=== PATIENT | male | born 1955 ===

== ENCOUNTER 2021-03-29 03:13 | Observation (INO) | payer MEDICARE, MEDICAID, SELFPAY ==
[2021-03-29] VITALS (9 sets, daily range): BP systolic 131–155; BP diastolic 61–85; PULSE 70–81; RESP 16–18; TEMP 36.1–36.8; O2SAT 85–93; BMI 25.1
--- NOTE | 2021-03-29 04:50 | DI.ECHO.S_ITS ---
[facility] +---------+ : : [address] : : : : [id number] : : : : Phone: [phone]+ Echocardiogram Report + + :Name: EFRAIN DRAPER Study Date: 03/29/2021 Height: 70 in : :[facility] ReadingLocation: Weight: 175 lb : : Gender: Male BSA: 2.0 m2 : :: 1955 Age: 66 yrs BP: 151/85 mmHg: :Reason For Study: Congestive Heart Failure : :Ordering Physician: MELANIE, : :KRISTIE Performed By: Fidel Vergara : :Referring: KRISTIE NAVARRO : + + Interpretation Summary The left ventricle is normal in size. The ejection fraction is estimated to be 55-60%. The right ventricle is at the upper limits of normal in size. The right ventricular systolic function is normal. There is mild aortic regurgitation. There is mild to moderate tricuspid regurgitation. The right ventricular systolic pressure is estimated to be at least 36 mmHg based on an estimated right atrial pressure of 3 mm Hg. Procedure: A two-dimensional transthoracic echocardiogram with color flow and Doppler was performed. The study quality was technically adequate. There is no prior echocardiogram noted for this patient. The patient was in normal sinus rhythm during the exam. Left Ventricle: The left ventricle is normal in size. Proximal septal thickening is noted. There is no echo evidence for significant left ventricular outflow tract obstruction. There is no thrombus. The ejection fraction is estimated to be 55-60%. There are no focal wall motion abnormalities. MV E/A: 0.80 Med Peak E' Augustin: 3.8 cm/sec E/E' med: 16.8. Right Ventricle: The right ventricle is at the upper limits of normal in size. The right ventricular systolic function is normal. Atria: The left atrial size is normal. The right atrium is mildly dilated. Intermittent aortic root shadow seen in the right atrium during different anticoagulation. In multiple views overall no obvious right atrial mass seen. There is no Doppler evidence for an interatrial shunt. The thickening of interatrial septum suggests lipomatous hypertrophy. Mitral Valve: There is mild mitral annular calcification. The mitral valve leaflets are mildly calcified. There is trace mitral regurgitation. Aortic Valve: The aortic valve is trileaflet. The aortic valve opens well. The aortic valve is slightly calcified. There is no aortic valve stenosis. There is mild aortic regurgitation. Tricuspid Valve: Fatty tricuspid annulus. There is mild to moderate tricuspid regurgitation. The right ventricular systolic pressure is estimated to be at least 36 mmHg based on an estimated right atrial pressure of 3 mm Hg. Pulmonic Valve: The pulmonic valve is normal in structure and function. There is a trace or physiologic amount of pulmonic regurgitation. Great Vessels: The aortic root is normal size. The IVC is of normal diameter and collapses greater than 50% with a sniff. This suggests a low right atrial pressure of 3 mm Hg. Pericardium/ Pleura There is no pericardial effusion. There is no pleural effusion. MMode/2D Measurements & Calculations LVIDd: 5.6 cm LVOT diam: 2.4 cm LVIDs: 3.6 cm Ao root diam: 3.5 cm FS: 34.4 % IVSd: 1.1 cm LVPWd: 1.0 cm LV lechuga. diameter/BSA (cm/m^2): 2.8 LV sys. diameter/BSA (cm/m^2): 1.9 LA A2 area: 21.7 cm2 RA long axis: 5.0 cm LA A4 area: 19.0 cm2 RA area: 20.7 cm2 LA length (vol): 5.6 cm RA vol: 73.3 ml LA vol: 62.7 ml RA : 37.2 ml/m2 LA vol index: 31.8 ml/m2 RVD1 (basal): 3.8 cm TAPSE: 2.9 cm Doppler Measurements & Calculations Ao V2 max: 176.8 cm/sec LVOT Max Augustin: 135.9 cm/sec Ao V2 mean: 116.8 cm/sec LV V1 max P.4 mmHg Ao max P.5 mmHg LV V1 VTI: 27.8 cm Ao mean P.3 mmHg CAROLYNN(I,D): 3.8 cm2 Ao V2 VTI: 34.0 cm CAROLYNN(V,D): 3.6 cm2 sev ratio: 0.82 CAROLYNN indexed to BSA (cm^2/m^2): 1.9 MV E max augustin: 63.3 cm/sec TR max augustin: 285.3 cm/sec MV A max augustin: 79.3 cm/sec TR max P.6 mmHg MV E/A: 0.80 PA pr(Accel): 41.3 mmHg Med Peak E' Augustin: 3.8 cm/sec E/E' med: 16.8 Lat Peak E' Augustin: 7.8 cm/sec E/E' lat: 8.1 E/e' average: 12.4 MV dec time: 0.33 sec [facility] 128.9 ml Reading Physician:11:57 AM
--- NOTE | 2021-03-29 04:52 | P.HP_ITS ---
History of Present Illness History of Present Illness Date Patient Seen: 03/29/21 Time Patient Seen: 04:53 Chief complaint: COPD Exacerbation Narrative: The patient is a 66-year-old male with a history of COPD, gout, congestive heart failure, hyperlipidemia who was in his usual state of health until 3 days ago. Patient reports he began getting increasingly short of breath using his inhaler more frequently. Yesterday he got up coughed and became abruptly short of breath. He was taken to the [facility] Emergency Department for evaluation. Patient was found to have COPD exacerbation. He also had a chest x-ray which showed a right lower lobe pneumonia. The patient underwent chest x-ray which confirmed the pneumonia in addition to CT angio which showed no evidence of PE and a right lower lobe pneumonia. The patient's laboratory studies were remarkable for sodium of 141 potassium 4.5 chloride 104 CO2 of 26 BUN 26 creatinine 1.05 calcium 9 AST 20 ALT of 23 alk phos of 132 total protein 7.6 albumin 3.8. Patient was hypoxic on room air and placed on 4 L of oxygen for saturation of 91 and 93%. He was started on ceftriaxone and azithromycin and given IV steroids. Patient had a 12 lead EKG which showed sinus rhythm and no acute ST T wave abnormalities. Patient had documented oxygen saturation of 89% on room air which improved to 94% on 4 L of oxygen patient had a procalcitonin which was 0.5, lactic acid 0.7, D-dimer elevated at 0.67, troponin I 0.017 patient's SARS-CoV-2 was negative, viral panel was negative as well. Blood cultures were obtained as well. Patient does report cough, shortness of breath and wheezing. He has no headache blurred vision or double vision. He had no runny nose or fever. He denies any hemoptysis, nausea vomiting or diarrhea. Patient has no palpitations but does describe chest pain related to coughing. He does report occasional lower extremity edema. He previously was on Lasix for edema but that was discontinued. Patient was transferred from [facility] to [facility] as they had no beds available for inpatient treatment of COPD and right lower lobe pneumonia. Patient History Medical History (Updated 03/29/21 @ 05:06 by Johanna Montiel MD) Acute exacerbation of chronic obstructive pulmonary disease (COPD) Chronic congestive heart failure Degenerative joint disease (DJD) of lumbar spine Gout Hyperlipidemia Hypertension Surgical History (Updated 03/29/21 @ 05:07 by Johanna Montiel MD) H/O meniscectomy of right knee Family & Social History Family History (Updated 03/29/21 @ 05:07 by Johanna Montiel MD) Mother Congestive heart failure Social History: household members none Prior Living Arrangements House Safety & Behavioral: Feels Safe in Current Yes Environment Been Physically Hurt or No Threatened By a Person Suicidal Ideation Description None Tobacco & Substance use: Tobacco type cigarettes Smoking Status Former smoker Smoking packs per day 1 alcohol intake former alcohol intake frequency 3 or more drinks per day Substance Use Type does not use Review of Systems Review of Systems Narrative: Patient reports frequency, and feels that he cannot empty his bladder. He has multiple episodes of urination. But no dysuria hematuria or pyuria. Further review 10 point review of systems is negative Exam Vital Signs (past 8 hours): - 03/29/21 03:45 Temperature 97.0 F L Pulse Rate 81 Respiratory Rate 18 Blood Pressure 155/85 H Pulse Oximetry 93 Oxygen Flow Rate 0 Narrative Exam Narrative: Pleasant gentleman resting in bed HENIL Other: HEENT: Normocephalic atraumatic, extraocular muscles are intact, oropharynx is clear, moist mucous membranes are noted. Neck Other: Neck is supple, no adenopathy, no thyromegaly, no JVD Resp Other: Lungs reveal decreased breath sounds with end-expiratory wheezing bilaterally Cardio Other: Cardiac exam: Regular rate and rhythm normal S1-S2 GI Other: Abdomen: Soft and nontender, there is an umbilical hernia, there is no hepatosplenomegaly Neuro Other: Neuro exam is nonfocal Extrem Other: No edema Psych Other: The patient is awake alert and appropriate, no hallucinations, noted delusions Objective ECG Impression: EKG from [facility] reviewed, sinus rhythm with no a cute ST T wave abnormalities Labs Labs: Labs described above Assessment & Plan Assessment & Plan narrative: 66-year-old male admitted to the hospital for acute hypoxic respiratory failure -multifactorial secondary to COPD and pneumonia -patient with a 35 pack-year he history of smoking, he quit in 2003, but is maintained on an albuterol inhaler -CT of the chest and chest x-ray confirmed right lower lobe infiltrate -patient is normally on room air, required oxygen on admission, he presented with a room air saturation of 88% -will continue ceftriaxone and azithromycin -will continue prednisone 40 mg daily -continue albuterol/ Atrovent inhaler -will start a steroid inhaler as well -[id number] negative at the outside facility respiratory panel negative as well -CT angio negative for PE 2. Hypertension -patient currently managed with Coreg 25 b.i.d. -may need to add additional medication as blood pressure somewhat elevated at 155/83. 3. Chronic congestive heart failure -will obtain echocardiogram -continue Coreg 4. Hyperlipidemia -continue pravastatin 5. Gout -continue allopurinol 6. Chronic back pain -continue tramadol Patient reports he is a full code will note that his record accordingly Patient reports his sister is his surrogate decision maker Patient will be admitted as an inpatient Time Spent With Patient Critical Care time: I spent a total of [] minutes of critical care time on this patient's care today; this time is exclusive of procedural time.
[2021-03-29] MEDS: LACTATED RINGERS 1,000 ML 100 ML IV (05:00)
[2021-03-29] MEDS: cefTRIAXone 1,000 MG in SODIUM CHLORIDE 0.9% 100 ML 200 ML IV (05:57)
[2021-03-29] MEDS: TRAMADOL 50 MG TABLET 100 MG PO ×3 (06:53→18:24)
[2021-03-29] MEDS: ACETAMINOPHEN 325 MG TABLET 650 MG PO (06:53)
[2021-03-29] MEDS: AZITHROMYCIN 250 MG TABLET PO (08:07)
[2021-03-29] MEDS: predniSONE 20 MG TABLET 40 MG PO (08:07)
[2021-03-29] MEDS: allopurinoL 300 MG TABLET PO (08:07)
[2021-03-29] MEDS: ENOXAPARIN 40 MG/0.4 ML SYRINGE SUBCUT (08:07)
[2021-03-29] MEDS: carvediloL 12.5 MG TABLET 25 MG PO ×2 (08:07→19:54)
[2021-03-29] MEDS: TAMSULOSIN 0.4 MG CAPSULE PO (10:42)
[2021-03-29] MEDS: ALBUTEROL/IPRATROPIUM 3 ML AMPUL INH ×3 (12:16→21:13)
[2021-03-29 12:17] LABS: Prostate Specific Antigen 1.76 ng/mL (0.10-4.00)
[2021-03-29] MEDS: PRAVASTATIN 20 MG TABLET 80 MG PO (21:03)
[2021-03-29] MEDS: BUDESONIDE 0.5 MG/2 ML NEB INH (21:13)
[2021-03-30 00:30] VITALS: BP 132/65; PULSE 66; RESP 16; TEMP 36.2; O2SAT 92
[2021-03-30] MEDS: TRAMADOL 50 MG TABLET 100 MG PO ×3 (01:10→12:57)
[2021-03-30] MEDS: ACETAMINOPHEN 325 MG TABLET 650 MG PO ×2 (01:13→14:15)
[2021-03-30 04:45] VITALS: BP 139/70; PULSE 72; RESP 16; TEMP 36.2; O2SAT 93
[2021-03-30] MEDS: cefTRIAXone 1,000 MG in SODIUM CHLORIDE 0.9% 100 ML 200 ML IV (05:34)
[2021-03-30 06:18] LABS: Add Manual Diff / Slide Review NO; Basophils Absolute Auto 100 /uL (0-100); Basophils Percent Auto 0.4 % (0-2); Eosinophils Absolute Auto 0 /uL (0-450); Eosinophils Percent Auto 0.2 % (2-4); Hemoglobin 13.7 g/dL (13.5-17.5); Lymphocytes Absolute Auto 3600 /uL (1100-4500); Lymphocytes Percent Auto 15.8 % (25-40); Mean Corpuscular HGB Conc 32.7 % (30-36); Mean Corpuscular Hemoglobin 29.3 PG (26-34); Mean Corpuscular Volume 89.9 fL (80-100); Monocytes Absolute Auto 1200 /uL (0-900); Monocytes Percent Auto 5.1 % (3-14); Neutrophils Absolute Auto 18100 /uL (1500-7000); Neutrophils Percent Auto 78.5 % (50-75); Platelet Count 180 X10^3/uL (150-400); Red Blood Cell Count 4.68 X10^6/uL (4.5-5.9); Red Cell Distribution Width 15.6 % (11.6-14.8)
[2021-03-30 06:39] LABS: Alanine Aminotransferase 21 IU/L (<50); Albumin 3.8 g/dL (3.5-5.0); Albumin Globulin Ratio 1.3 (1.0-2.8); Alkaline Phosphatase 81 U/L (38-126); Aspartate Aminotransferase 43 IU/L (17-59); BUN Creatinine Ratio 36.7 (6-22); Bilirubin Total 0.4 mg/dL (0.2-1.3); Blood Urea Nitrogen 36 mg/dL (9-20); Calcium 9.2 mg/dL (8.4-10.2); Carbon Dioxide 24 mmol/L (22-32); Chloride 111 mmol/L (98-107); Estimated Glomerular Filt Rate > 60.0 mL/min (>60); Globulin 2.9 g/dL (1.7-4.1); Glucose 108 mg/dL (80-110); HEMOLYSIS < 15 (0-50); Potassium 4.1 mmol/L (3.4-5.1); Sodium 142 mmol/L (137-145); Total Protein 6.7 g/dL (6.3-8.2)
[2021-03-30 06:47] LABS: NT-proBNP (BNP-Adult 18+) 1020 pg/mL (<125)
[2021-03-30 08:00] VITALS: BP 151/85; PULSE 64; RESP 14; TEMP 36.5; O2SAT 94
[2021-03-30] MEDS: ALBUTEROL/IPRATROPIUM 3 ML AMPUL INH (08:24)
[2021-03-30] MEDS: BUDESONIDE 0.5 MG/2 ML NEB INH (08:24)
[2021-03-30 08:27] VITALS: O2SAT 96
[2021-03-30 08:46] VITALS: BP 151/85
[2021-03-30] MEDS: carvediloL 12.5 MG TABLET 25 MG PO (08:46)
[2021-03-30] MEDS: AZITHROMYCIN 250 MG TABLET PO (08:46)
[2021-03-30] MEDS: allopurinoL 300 MG TABLET PO (08:47)
[2021-03-30] MEDS: predniSONE 20 MG TABLET 40 MG PO (08:47)
[2021-03-30] MEDS: ENOXAPARIN 40 MG/0.4 ML SYRINGE SUBCUT (08:48)
[2021-03-30] MEDS: TAMSULOSIN 0.4 MG CAPSULE PO (08:50)
--- NOTE | 2021-03-30 09:15 | PM.DS.1 ---
History of Present Illness History of Present Illness Date Patient Seen: 03/30/21 Time Patient Seen: 09:15 Chief complaint: COPD Exacerbation Narrative: Per Dr. Montiel, The patient is a 66-year-old male with a history of COPD, gout, congestive heart failure, hyperlipidemia who was in his usual state of health until 3 days ago.? Patient reports he began getting increasingly short of breath using his inhaler more frequently.? Yesterday he got up coughed and became abruptly short of breath.? He was taken to the [facility] Emergency Department for evaluation.? Patient was found to have COPD exacerbation.? He also had a chest x-ray which showed a right lower lobe pneumonia.? The patient underwent chest x-ray which confirmed the pneumonia in addition to CT angio which showed no evidence of PE and a right lower lobe pneumonia.? The patient's laboratory studies were remarkable for sodium of 141 potassium 4.5 chloride 104 CO2 of 26 BUN 26 creatinine 1.05 calcium 9 AST 20 ALT of 23 alk phos of 132 total protein 7.6 albumin 3.8.? Patient was hypoxic on room air and placed on 4 L of oxygen for saturation of 91 and 93%.? He was started on ceftriaxone and azithromycin and given IV steroids.? Patient had a 12 lead EKG which showed sinus rhythm and no acute ST T wave abnormalities.? Patient had documented oxygen saturation of 89% on room air which improved to 94% on 4 L of oxygen patient had a procalcitonin which was 0.5, lactic acid 0.7, D-dimer elevated at 0.67, troponin I 0.017 patient's SARS-CoV-2 was negative, viral panel was negative as well.? Blood cultures were obtained as well. Patient does report cough, shortness of breath and wheezing.? He has no headache blurred vision or double vision.? He had no runny nose or fever.? He denies any hemoptysis, nausea vomiting or diarrhea.? Patient has no palpitations but does describe chest pain related to coughing.? He does report occasional lower extremity edema.? He previously was on Lasix for edema but that was discontinued. Patient was transferred from [facility] to [facility] as they had no beds available for inpatient treatment of COPD and right lower lobe pneumonia. Discharge Providers Provider Date of admission: 03/29/21 03:13 Discharge Date: 03/30/21 Discharge provider: Silverio Harper DO Summary Hospital Course Discharge Diagnosis: 1. Acute respiratory failure with hypoxia secondary to RLL pneumonia and COPD exacerbation. 2. Hypertension 3. Chronic congestive heart failure, diastolic 4. Hyperlipidemia 5. Gout 6. Chronic back pain 7. BPH, new diagnosis Hospital Course: This is a 66-year-old male with a past medical history of COPD, hypertension, diastolic heart failure, hyperlipidemia, gout, and chronic back pain who was transferred from an outside facility for pneumonia, COPD exacerbation, and acute hypoxic respiratory failure. At outside facility his oxygenation was noted to be at 88% on room air, he was initially on 4 L. he quickly improved with antibiotics and steroids. His other usual home medications were continued. He further reported very frequent urination, waking up nightly every hour so. He was started on Flomax. I recommend that he follow-up with his primary care provider in the next couple of weeks. He was discharged on oral prednisone to complete taper and an antibiotic for 3 additional days. He has a reported history of diastolic heart failure, echocardiogram revealed a normal EF, and no evidence of volume overload and was not contributory towards the patient's hypoxia. Exam Vital Signs (past 8 hours): - 03/30/21 04:45 03/30/21 08:00 03/30/21 08:27 Temperature 97.1 F L 97.7 F Pulse Rate 72 64 Respiratory Rate 16 14 Blood Pressure 139/70 151/85 H Pulse Oximetry 93 94 96 03/30/21 08:46 Temperature Pulse Rate Respiratory Rate Blood Pressure 151/85 H Pulse Oximetry Oxygen Delivery Method Room Air Oxygen Flow Rate 2 Narrative Exam Narrative: Pleasant gentleman resting in bed [facility] Other:?HEENT:? Normocephalic atraumatic, extraocular muscles are intact, oropharynx is clear, moist mucous membranes are noted. Neck Other:?Neck is supple, no adenopathy, no thyromegaly, no JVD Resp Other:?Lungs reveal decreased breath sounds with end-expiratory wheezing bilaterally Cardio Other:?Cardiac exam: Regular rate and rhythm normal S1-S2 GI Other:?Abdomen:? Soft and nontender, there is an umbilical hernia, there is no hepatosplenomegaly Neuro Other:?Neuro exam is nonfocal Extrem Other:?No edema Psych Other:?The patient is awake alert and appropriate, no hallucinations , delusions Objective Labs Result Diagrams: 03/30/21 05:53 03/30/21 05:53 Labs: Laboratory Results - last 24 hr 03/29/21 03/30/21 03/30/21 11:18 05:53 05:53 WBC 23.0 H RBC 4.68 Hgb 13.7 Hct 42.0 MCV 89.9 MCH 29.3 MCHC 32.7 RDW 15.6 H Plt Count 180 Neut % (Auto) 78.5 H Lymph % (Auto) 15.8 L Hood % (Auto) 5.1 Eos % (Auto) 0.2 L Baso % (Auto) 0.4 Neut # (Auto) 03678 H Lymph # (Auto) 3600 Hood # (Auto) 1200 H Eos # (Auto) 0 Baso # (Auto) 100 Sodium 142 Potassium 4.1 Chloride 111 H Carbon Dioxide 24 BUN 36 H Creatinine 0.98 Estimated GFR > 60.0 BUN/Creatinine Ratio 36.7 H Glucose 108 Calcium 9.2 Total Bilirubin 0.4 AST 43 ALT 21 Alkaline Phosphatase 81 NT-Pro-B Natriuret Pep 1020 H Total Protein 6.7 Albumin 3.8 Globulin 2.9 Albumin/Globulin Ratio 1.3 Prostate Specific Ag 1.76 [facility] Medical History (Updated 03/29/21 @ 05:06 by Johanna Montiel MD) Acute exacerbation of chronic obstructive pulmonary disease (COPD) Chronic congestive heart failure Degenerative joint disease (DJD) of lumbar spine Gout Hyperlipidemia Hypertension Surgical History (Updated 03/29/21 @ 05:07 by Johanna Montiel MD) H/O meniscectomy of right knee Family History (Updated 03/29/21 @ 05:07 by Johanna Montiel MD) Mother Congestive heart failure Social History household members: none Smoking Status: Former smoker alcohol intake: former Discharge Plan Discharge Plan Patient Disposition: Home Provider Discharge Comment: You were admitted to the hospital with COPD exacerbation and a pneumonia. You improved with antibiotics and steroids. You were also started on a medication for prostate enlargement. Please follow up with your PCP in the next few weeks. Discharge orders & Medications Prescriptions: New prednisone 20 mg Tablet 40 mg PO DAILY 3 Days Qty: 6 RF: 0 tamsulosin [Flomax] 0.4 mg Capsule 0.4 mg PO DAILY 30 Days Qty: 30 RF: 0 amoxicillin-pot clavulanate 875-125 mg tablet 1 tab PO BID 3 Days Qty: 6 RF: 0 Continued tramadol 50 mg tablet 50 mg QID RF: 0 albuterol sulfate 90 mcg/actuation HFA aerosol inhaler 90 mcg INHALATION DAILY RF: 0 allopurinol 300 mg tablet 300 mg PO DAILY RF: 0 carvedilol 25 mg tablet 25 mg PO BID RF: 0 pravastatin 80 mg tablet 80 mg PO DAILY RF: 0 Diet/Activity/Treatments Diet: Diet as Tolerated Activity: As tolerated Visit Report/Discharge Packet Instructions: DI for Prescription Opioid Use, Prednisone, DI for Hypoxia Discharge Data Attending Provider: Johanna Montiel
--- NOTE | 2021-03-30 11:08 | CM.DANOTE ---
Addendum entered by Kelley Cool BUSINESS ANALYT[employer] INTERN 03/30/21 13:23: ADD: Per [employer], still have not heard back from [employer]. SW called and texted [employer] and no response yet. SW called [employer] and confirmed route for [place] [place] and also called [employer] and confirmed that they do not have availability to drive pt all the way to [place] but could utilize the taxi voucher to get pt to the [facility] bus/train station for pt to catch the 1400 bus to [place]. SW updated pt and he is not agreeable to taking the bus and states he has some money on my debit card, I'd rather just pay myself and have a straight ride to my destination. SW confirmed that he wants to cancel [employer] to [facility] and would rather pay privately. SW called [employer] [place], [employer] [facility], [employer], [employer] and only [employer] has availability for transport at 1400 and [address]. SW updated pt and he is agreeable to paying for this. Return call from [employer] [facility] who states they have an opening for Medicaid transport for pt around 1500 today. THEA spoke with pt and preference is to go with [employer] Medicaid transport as he is on a fixed income and he requests SW to cancel his [employer] transport. THEA called and cancelled. Plan: Patient to d/c home today via Medicaid taxi with [employer] around 1500. BF Original Note: Patient is a 66 yo male who was admitted on 03/29/21 for COPD exacerbation. Pt has [facility] MCR for insurance and AMANDA. EMR was reviewed. Per MD, pt was transferred from [facility] due to bed availability shortage and admitted with pneumonia and PE. Pt medically stable to d/c home today. THEA met bedside with pt and explained role and he confirms he lives in [facility] area alone and independent at baseline with ADL's and drives and his only family left is his sister who is staying at the [facility] in [place] which is where pt is going at d/c. Pt states he does not have a ride home but is ready to d/c as soon as possible but unsure if he has Medicaid transport benefits. THEA called [employer] w/e and confirmed pt has Medicaid benefits and they are willing to attempt setting up a Medicaid taxi to [place]. So far 2 taxi companies have declined due to availability and waiting to hear from a third. Plan: SW to follow for return call from [employer] to determine if Medicaid taxi available for transport today. SW may look into bus voucher for transport. PAT Carney Discharge Planning/Care Management CM Discharge Assessment Start: 03/30/21 11:07 Freq: Status: Active Protocol: Document 03/30/21 11:07 (Rec: 03/30/21 11:08 [id number]) Discharge Planning Assessment Assigned Correspondence Dictator PAT Benson DPOA/Assigned Designee Name none, informally sister Advance Directives? No Advance Directives on File No History Provided By Patient,Medical Record Has Patient been admitted in last 30 No days? Prior Living Arrangements House Household Members none Type of transporation used prior to Drives own vehicle admit Independent with ADL's Yes Is patient alert and oriented? Yes Caregiver for Another No Barriers to Discharge No Discharge Plan Home Transportation Arrangement Has Medicaid transport benefits but awaiting to see if any available for transport home Referrals Initiated None needed Whiteboard Updated in Patient Room with Yes name and ext. # of Correspondence Dictator Review Status In Process Please Provide Date Initial DC 03/30/21 Assessment Was Performed Next Review Type Continued Stay Review
--- NOTE | 2021-03-30 11:42 | PC.NURSE ---
Pt is dressed and ready for discharge home to [place]. Went over d/c instructions with Pt-discussed d/c meds, time of last dose, reviewed stroke education, and follow up. Pt denied further questions and will be ready to discharge out when his ride arrives.
== END 2021-03-30 15:35 | disposition home or self-care (01) ==
PROVIDERS: Admitting Provider Internal Medicine; Referring Provider Emergency Medicine; Visit Provider Internal Medicine
DX: J96.01 Acute respiratory failure with hypoxia (principal); J44.1 Chronic obstructive pulmonary disease with (acute) exacerbation; J18.9 Pneumonia, unspecified organism; I50.32 Chronic diastolic (congestive) heart failure; I10 Essential (primary) hypertension; E78.5 Hyperlipidemia, unspecified; M10.9 Gout, unspecified; G89.29 Other chronic pain; N40.1 Benign prostatic hyperplasia with lower urinary tract symptoms; R35.0 Frequency of micturition; Z87.891 Personal history of nicotine dependence; Z20.822 Contact with and (suspected) exposure to COVID-19
CPT/HCPCS: 36415; 80053; 82962; 83880; 84153; 85025; 93306; 94640; 94762; 96365; G0378; G0379; J0696; J1650